=== PATIENT | male | born 1955 | race Caucasian/White ===

== ENCOUNTER 2021-10-21 07:05 | Observation (INO) ==
[~2021-10-21 07:05] MED LIST: Buffered Lidocaine 1% SYRIN 1 ml INTRADERM ONE
[2021-10-21] MEDS: NS 0.9% 1000 ml BAG 1,000 ML IV SCH ×2 (08:03→08:50)
[2021-10-21] MEDS ORDERED: Lidocaine 1% MPF 5 ML VIAL ONE (08:11)
[2021-10-21] MEDS ORDERED: ROPIVACAINE 5 MG/ML 30 ML BTL (0.5%) ONE (08:11)
[2021-10-21] MEDS ORDERED: Midazolam 2 mg/2 ml VIAL 1 mg/ml 2 ml VIAL (2 mg) ONE (08:16)
[2021-10-21] MEDS ORDERED: ceFAZolin 2 GM PREMIX 2 GM/50 ML BAG ONE (08:45)
[2021-10-21] MEDS ORDERED: Lidocaine 2% PF 5 ML VIAL ONE (08:54)
[2021-10-21] MEDS ORDERED: Phenylephrine IV 10 MG/ML 1 ml VIAL ONE (08:54)
[2021-10-21] MEDS ORDERED: fentaNYL 100 mcg/2 ml 50 MCG/ML VIAL ONE (08:54)
[2021-10-21] MEDS ORDERED: Dexamethasone IV 4 MG/ML VIAL 1 ml VIAL ONE (08:54)
[2021-10-21] MEDS ORDERED: Ondansetron 4 mg VIAL 2 MG/ML 2 ml VIAL ONE (08:54)
[2021-10-21] MEDS ORDERED: Glycopyrrolate IV 0.2 MG/ML 1 ML VIAL ONE ×2 (09:55→09:59)
[2021-10-21] MEDS ORDERED: Ketamine HCL 50 mg/ml 10 ml VIAL (500 MG) ONE (09:56)
[2021-10-21] MEDS ORDERED: Ondansetron 4 mg VIAL 2 MG/ML 2 ml VIAL IV PRN ×2 (09:59→10:37)
[2021-10-21] MEDS ORDERED: HYDROmorphone 1 MG/1 ML SYRINGE IV PRN (09:59)
[2021-10-21] MEDS ORDERED: DiMENhydriNATE IV 50 mg/ml 1 ml VIAL IV PUSH PRN (09:59)
[2021-10-21] MEDS ORDERED: fentaNYL 100 mcg/2 ml 50 MCG/ML VIAL IV PRN (09:59)
[2021-10-21] MEDS ORDERED: Acetaminophen IV 1 GM/100ML 100 ML IV PRN (09:59)
[2021-10-21] MEDS ORDERED: Naloxone 0.4 mg VIAL 0.4 mg/ml 1 ml VIAL IV PRN (09:59)
[2021-10-21] MEDS ORDERED: Ropivacaine 5 MG/ML 20 ML VIAL 0.5% (100 MG) ONE (10:05)
[2021-10-21] MEDS ORDERED: Lactulose 30 ml UDC PO PRN (10:37)
[2021-10-21] MEDS ORDERED: Morphine 2 MG/ML SYRINGE IV PRN (10:37)
[2021-10-21] MEDS ORDERED: Ondansetron ODT 4 mg TAB 4 MG TAB PO PRN (10:37)
[2021-10-21] MEDS ORDERED: diPHENhydraMINE 25 mg TAB PO PRN (10:37)
[2021-10-21] MEDS ORDERED: diPHENhydraMINE IV 50 MG/ML 1 ml VIAL (BENADRYL) IV PRN (10:37)
[2021-10-21] MEDS ORDERED: Magnesium Hydroxide LIQ 30 ML UDC PO PRN (10:37)
[2021-10-21] MEDS ORDERED: Dextrose 50% Syringe 50 ml 25 GM/50 ML SYRINGE IV PUSH PRN (13:39)
[2021-10-21] MEDS: Lactated Ringers 1000 ml BAG 1,000 ML IV SCH (16:00)
[2021-10-21] MEDS: ceFAZolin VIAL 1 GM in NS 0.9% 50 ML 50 ML IVPB SCH (19:46)
[2021-10-21] MEDS: Magnesium Hydroxide LIQ 30 ML UDC PO SCH (21:17)
[2021-10-22] MEDS: ceFAZolin VIAL 1 GM in NS 0.9% 50 ML 50 ML IVPB SCH ×2 (02:37→10:30)
[2021-10-22] MEDS: Lactated Ringers 1000 ml BAG 1,000 ML IV SCH (04:23)
[2021-10-22 05:02] LABS: Hematocrit 39 % (42-52); Hemoglobin 13.6 g/dL (14.0-18.0); Mean Platelet Volume 7.8 fL (7.4-10.4); Platelet Count 181 10^3/uL (150-450)
[2021-10-22 05:59] LABS: Calcium 8.8 mg/dL (8.6-10.3); Potassium 4.1 mmol/L (3.5-5.0)
[2021-10-22 06:05] LABS: eGFR CKD-EPI 84.5 (>60)
[2021-10-22 08:17] VITALS: BP 139/63
[2021-10-22] MEDS: Magnesium Hydroxide LIQ 30 ML UDC PO SCH (08:18)
[2021-10-22] MEDS ORDERED: Vitamin THERAPEUTIC TAB PO SCH (09:00)
== END 2021-10-22 12:45 | disposition home or self-care (01) ==
LOC: SSU 07:05 → OR 07:05
PROVIDERS: ADMIT Orthopaedic Surgery Adult Reconstructive Orthopaedic Surgery; ATTEND Orthopaedic Surgery Adult Reconstructive Orthopaedic Surgery